=== PATIENT | male | born 1955 | race Caucasian/White ===

== ENCOUNTER → 2022-10-20 08:58 | Outpatient (BNVA) | payer MEDICARE, SELFPAY | PROVIDERS: PCP Internal Medicine; Referring Provider Internal Medicine; Visit Provider Surgery | DX: C44.41 Basal cell carcinoma of skin of scalp and neck (principal); L98.9 Disorder of the skin and subcutaneous tissue, unspecified; Z79.01 Long term (current) use of anticoagulants | CPT/HCPCS: 11104; 11200; 99202; 99203 ==

== ENCOUNTER 2022-10-20 09:36 | Outpatient (REF) | payer MEDICARE, SELFPAY ==
--- NOTE | 2022-10-20 09:30 | SKI_PTH ---
PATIENT: SCARLETT DE LA FUENTE LOC: [facility] U#:[id number] AGE/SX: 67/M ROOM: RE10/20/[address]: Anna Radford MD : 1955 BED: DIS: 10/20/2022 SPEC #: [id number] RECD: 10/20/22 12:28 STATUS: MATT REQ #: [id number] JUAN DIEGO: 10/20/22 09:[address]: Anna Radford DEPT: Surgical Specimen RECD BY: Dilma Real ENTERED: 10/20/22 12:28 SP TYPE: ELISABETH VALADEZ DR: Nirmala Moreau Tissues: 1 - SKIN BIOPSY(SHAVE/PUNCH) Procedures: SKIN LEVEL 4 Comments: [id number]
== END 2022-10-20 09:37 | disposition home or self-care (01) ==
LOC: LBN 09:36
PROVIDERS: PCP Internal Medicine; Visit Provider Surgery
DX: C44.41 Basal cell carcinoma of skin of scalp and neck (principal)
CPT/HCPCS: 88305